=== PATIENT | male | born 1955 ===

== ENCOUNTER 2018-04-08 06:52 | Day surgery (SDC) | payer MEDICARE ==
[2018-04-05 12:40] VITALS: BMI 37.3
[2018-04-08] MEDS ORDERED: Lidocaine 2% Inj (20ml) ONE (07:53)
[2018-04-08] MEDS ORDERED: Iodixanol 320 MG/ML 200 ML BOTTLE IV ONE (07:54)
[2018-04-08 08:21] LABS: BASO # 0.03 K/mm3 (0.0-2.0); BASO % 0.5 % (0.0-3.0); EOS # 0.6 (0.0-0.7); EOS % 10.7 % (1.5-5.0); GRAN # 2.49 (1.4-6.5); GRAN % 41.8 % (50.0-68.0); HEMOGLOBIN 12.4 g/dL (14.0-18.0); LYMPH # 2.4 (1.2-3.4); LYMPH % 39.4 % (22.0-35.0); MEAN CELL VOLUME 88.6 fl (80.0-105.0); MEAN CORPUSCULAR HGB CONC 33.8 g/dl (31.0-37.0); MEAN PLATELET VOLUME 8.8 fl (7.0-11.0); MONO # 0.5 (0.1-0.6); MONO % 7.6 % (1.0-6.0); RBC 4.14 10^6/uL (3.5-6.1); RED CELL DISTRIBUTION WIDTH 13.3 % (11.5-14.5)
[2018-04-08 08:25] LABS: PROTHROMBIN TIME 11.2 SECONDS (9.4-12.5)
[2018-04-08 08:26] LABS: INR 0.97 (0.93-1.08); PARTIAL THROMBOPLASTIN TIME 30.8 Seconds (25.1-36.5)
[2018-04-08] MEDS ORDERED: Midazolam 2 MG/2 ML VIAL ONE ×4 (08:27→09:58)
[2018-04-08 08:32] LABS: BLOOD UREA NITROGEN 17 mg/dL (7-21); CALCIUM 8.9 mg/dL (8.4-10.5); GFR AFRICAN-AMERICAN > 60; GFR NON-AFRICAN AMERICAN > 60; HDL CHOLESTEROL 39 mg/dL (29-60)
[2018-04-08 08:43] LABS: LDL CHOLESTEROL 85 mg/dL (0-129)
[2018-04-08] MEDS ORDERED: Eptifibatide 20 mg/10mL Inj IVP ONE (10:02)
[2018-04-08] MEDS ORDERED: Sodium Chloride 0.9% 1,000 ML IV SCH (10:15)
--- NOTE | 2018-04-08 11:27 | CARD ---
APPROVED REPORT EKG Measurement Heart [id number] <Conclusion> Normal sinus rhythm Normal ECG
--- NOTE | 2018-04-08 11:30 | CARD ---
APPROVED REPORT EKG Measurement Heart [id number] <Conclusion> Sinus rhythm with 1st degree AV block Borderline ECG
--- NOTE | 2018-04-08 13:27 | CARDCATH ---
PROCEDURE DATE: 04/08/2018 CARDIAC CATH AND PTCA HISTORY: The patient is a 62-year-old male, who suffers from hypertension, diabetes mellitus and hypercholesterolemia as well as obesity, who presents with an abnormal stress test. A cardiac catheterization was recommended. PROCEDURE: Left heart catheterization with coronary arteriography, left ventriculogram, followed by PTCA and stent of the circumflex artery. The right femoral artery was cannulated with a 6-Afghan sheath. There were no complications. I performed moderate sedation, which included the presence of an independent trained observer that assisted in monitoring the patient's level of consciousness and physiologic status. After administration of Versed and fentanyl, my intra service time was 45 minutes. The findings on catheterization revealed a right dominant circulation. The RCA revealed diffuse atherosclerosis throughout its coronary artery with calcification in the proximal portion. The posterolateral branch and PDA revealed 50-60% lesions. The left main artery was calcified without critical lesions. The circumflex artery in the AV groove branch was occluded. There is an obtuse marginal branch, which revealed intimal irregularities without critical lesions. The LAD was diffusely diseased throughout its course. At the takeoff of the septal supervisor stone, there is an 80% stenosis noted. In the midportion of the LAD, there was a long 70% stenosis noted. The first diagonal vessel revealed a 90% stenosis at its ostium. The patient was started on intravenous Angiomax and given two boluses of IV Integrilin. Using the guiding catheter as well as a guideliner, an ATW wire followed by a run-through wire followed by a wire was used to cross the total occlusion. A 2 followed by 2.5 balloon was utilized to predilate the total occlusion. A 2.5 x 20 mm drug-eluting stent was placed and deployed in the total occlusion at 14 atmospheres of pressure. Repeat coronary arteriography revealed an excellent result with no residual stenosis and MERLYN III flow. The patient tolerated the procedure well. The Angio-Seal was used to close the femoral artery site. IMPRESSION: 1. In summary, the procedure was successful for percutaneous transluminal coronary angioplasty and stent of a chronically occluded mid circumflex artery and stented with a drug-eluting stent. 2. Cardiac catheterization reveals triple vessel coronary artery disease with an occluded mid circumflex artery, multiple lesions in the left anterior descending and diagonal vessels and noncritical lesions in the right coronary artery. 3. Left ventricular function is normal. PLAN: 1. Given these findings, the patient will need to remain on aspirin indefinitely and Plavix for at least a year. We will bring him back in 1 week for PTCA and stent of the two lesions in the LAD, septal supervisor stone as well as the diagonal vessel. 2. The patient will need to undergo a strict cardiac risk reduction program as well as to lose weight. The intervention was discussed with the patient with risks, benefits of CABG versus PTCA. The patient and opted for PTCA first. Braxton Brewster MD
[2018-04-08] MEDS ORDERED: Oxycodone/Acetaminophen 5/325 mg Tab PO PRN (21:03)
[2018-04-08 23:54] VITALS: O2SAT 97
--- NOTE | 2018-04-09 04:24 | CP.PCM.PN ---
Subjective - Date & Time of Evaluation Date of Evaluation: 04/09/18 Time of Evaluation: 04:21 - Subjective Subjective: S: Seen @ bedside C/o pain in urethra when pees, not burning pain, has to stress to pass urine peeing a lot. No other complaints. Medical record was reviewed. O: VSS. Right groin dressing clean and dry. ABD:Soft , non tender, no mass. Genital exam-Normal. A:Pain in urethra. P:Has an order for percocet for pain. UA.Urince C&S. Objective - Vital Signs/Intake and Output Vital Signs (last 24 hours): Temp Pulse Resp BP Pulse Ox 98.4 F 78 20 116/68 97 04/08/18 23:53 04/09/18 02:00 04/08/18 23:53 04/08/18 23:53 04/08/18 23:53 - Medications Medications: Current Medications Amlodipine Besylate (Norvasc) 5 mg PO DAILY [facility] Aspirin (Ecotrin) 81 mg PO DAILY [facility] Atorvastatin Calcium (Lipitor) 40 mg PO DIN [facility] Last Admin: 04/08/18 17:16 Dose: 40 mg Clopidogrel Bisulfate (Plavix) 75 mg PO DAILY [facility] Famotidine (Pepcid) 40 mg PO HS [facility] Last Admin: 04/08/18 21:46 Dose: 40 mg Oxycodone/Acetaminophen (Percocet 5/325 Mg Tab) 1 tab PO Q6H PRN PRN Reason: Pain, moderate (4-7) Stop: 04/11/18 21:04 Last Admin: 04/09/18 04:11 Dose: 1 tab Pantoprazole Sodium (Protonix Ec Tab) 40 mg PO 0600 [facility] Pregabalin (Lyrica) 50 mg PO TID [facility] Last Admin: 04/08/18 21:46 Dose: 50 mg Tizanidine HCl (Zanaflex) 4 mg PO DAILY [facility] Last Admin: 04/08/18 21:46 Dose: 4 mg - Labs Labs: 04/08/18 07:55 04/08/18 07:55 PT 11.2 SECONDS (9.4-12.5) 04/08/18 07:55 INR 0.97 (0.93-1.08) 04/08/18 07:55 APTT 30.8 Seconds (25.1-36.5) 04/08/18 07:55
[2018-04-09 04:38] LABS: URINE BILIRUBIN NEGATIVE (NEGATIVE); URINE BLOOD TRACE-LYSED (NEGATIVE); URINE GLUCOSE (UA) NEGATIVE (NEGATIVE); URINE LEUKOCYTE ESTERASE NEGATIVE Leu/uL (NEGATIVE); URINE PROTEIN NEGATIVE mg/dL (<30 mg/dL); URINE UROBILINOGEN 0.2 E.U./dL (<1 E.U./dL)
[2018-04-09 04:39] LABS: URINE APPEARANCE CLEAR (CLEAR); URINE COLOR YELLOW (YELLOW)
[2018-04-09 05:21] LABS: URINE EPITHELIAL CELLS 0 - 2 /hpf (0-5); URINE RBC 0 - 2 /hpf (0-2); URINE WBC 0 - 2 /hpf (0-6)
[2018-04-09] MEDS ORDERED: Pantoprazole 40 mg EC Tab PO SCH (06:00)
[2018-04-09 06:17] LABS: BASO # 0.02 K/mm3 (0.0-2.0); BASO % 0.3 % (0.0-3.0); EOS # 0.5 (0.0-0.7); EOS % 6.1 % (1.5-5.0); GRAN # 4.65 (1.4-6.5); GRAN % 62.9 % (50.0-68.0); HEMOGLOBIN 12.1 g/dL (14.0-18.0); LYMPH # 1.6 (1.2-3.4); LYMPH % 21.2 % (22.0-35.0); MEAN CELL VOLUME 88.5 fl (80.0-105.0); MEAN CORPUSCULAR HEMOGLOBIN 29.5 pg (25.0-35.0); MEAN CORPUSCULAR HGB CONC 33.3 g/dl (31.0-37.0); MEAN PLATELET VOLUME 8.7 fl (7.0-11.0); MONO # 0.7 (0.1-0.6); MONO % 9.5 % (1.0-6.0); RBC 4.1 10^6/uL (3.5-6.1); RED CELL DISTRIBUTION WIDTH 13.5 % (11.5-14.5); WHITE BLOOD COUNT 7.4 10^3/ul (4.5-11.0)
[2018-04-09 06:22] VITALS: RESP 18; TEMP 97.5
[2018-04-09 06:44] LABS: BLOOD UREA NITROGEN 13 mg/dL (7-21); CALCIUM 8.7 mg/dL (8.4-10.5); GFR AFRICAN-AMERICAN > 60; GFR NON-AFRICAN AMERICAN > 60
[2018-04-09 09:21] VITALS: BP 112/66
--- NOTE | 2018-04-09 09:58 | PN ---
DATE: 04/09/2018 CARDIOLOGY FOLLOWUP SUBJECTIVE: The patient is chest pain free. He is complaining of dysuria. PHYSICAL EXAMINATION: VITAL SIGNS: This morning, blood pressure is 107/65, heart rate is in the 70s. NECK: Negative JVD. LUNGS: Without rales. HEART: Revels S1, S2. EXTREMITIES: Without edema. Right groin site is stable. LABORATORY DATA: Hemoglobin is 12.1, white count is normal. Glucose is 174. The urinalysis is negative. IMPRESSION: 1. Dysuria. 2. Stable post percutaneous transluminal coronary angioplasty and stent. 3. Coronary artery disease. 4. Diabetes mellitus. 5. Obesity. 6. Hypercholesterolemia. PLAN: Given these findings, the patient is stable post PTCA and stent. He needs to go home on aspirin, Plavix, statin therapy. The patient will be coming back next week for PTCA and stent of his other coronary stenoses. Followup and instructions were given to the patient in detail. Braxton Brewster MD
[2018-04-09 11:55] VITALS: PULSE 81
--- NOTE | 2018-04-10 11:50 | HP ---
DATE OF EXAM: 04/08/2018 REASON FOR ADMISSION: Status post cardiac tests, multiple vessel disease, status post stenting. HISTORY OF PRESENT ILLNESS: This is a 62-year-old male with history of positive nuclear stress test, underwent cardiac catheterization on the day of admission, which showed triple vessel disease, mid circumflex lesions, multiple lesions in the LAD, and noncritical lesion in the right coronary artery. Patient has normal LV function. Discussion with Dr. Brewster, he did the mid circumflex stenting with success. Patient will be admitted to Observation. Has no complication. No chest pain. No shortness of breath and seems stable cardiacwise. PAST MEDICAL HISTORY: As I mentioned above, coronary artery disease, positive stress test, also COPD, peptic ulcer disease, hypertension, chronic severe osteoarthritis of both knees and back, spinal stenosis. ALLERGIES: NO KNOWN ALLERGIES. SOCIAL HISTORY: No smoking, no drinking. FAMILY HISTORY: Noncontributory. REVIEW OF SYSTEMS: He does complain of back pain and knee pain. He does need knee surgery, probably knee replacement and he also needs going for bariatric surgery he got upper endoscopy shows an ulcer, no active bleeding. Patient, otherwise, is stable. PHYSICAL EXAMINATION: VITAL SIGNS: On 04/08/2018, temperature 98.4, heart rate 78, blood pressure 116/68, respirations 20, saturation 97% on room air. HEAD AND NECK: Normal. No JVD. No thyromegaly. CHEST: Clear bilaterally. CARDIAC: First sound and second sound normal. ABDOMEN: Soft, nontender, obese. EXTREMITIES: No edema. NEUROLOGIC: Normal. LABORATORY DATA: White count 6, hemoglobin 12.4, hematocrit 36.7, platelets 294. Chemistry: Sodium 141, potassium 4.2, chloride 99, bicarb 31, BUN 17, creatinine 0.8. blood sugar 166, calcium 8.9, triglycerides 220, cholesterol 176, LDL 85, HDL 39. Also, cardiac catheterization, as I mentioned above, multiple 3-vessel disease, LAD multiple lesions, mid circumflex significant lesion and noncritical lesion in RCA. Patient has good LV function. IMPRESSION AND PLAN: 1. Status post cardiac catheterization, stenting of mid circumflex. Patient will be admitted, Observation overnight. Continue Plavix, aspirin and continue current therapy. 2. Patient has history of hypertension, chronic obstructive pulmonary disease; for his peptic ulcer, resume Protonix, nebulizer treatment and resume all his medications and cholesterol medications. Continue current therapy. We will see him in the morning. Sachin Oviedo MD
--- NOTE | 2018-04-10 23:57 | DS ---
HISTORY OF PRESENT ILLNESS: Patient is stable. No chest pain. Comfortable. Seen by recruitment manager. Katherine for discharge. His blood sugar is 150. PHYSICAL EXAMINATION: VITAL SIGNS: Temperature 97.5, heart rate 77, blood pressure 112/66, respirations 18, sat 97% on room air. HEAD AND NECK: Normal. No JVD. No thyromegaly. CHEST: Clear bilaterally. CARDIAC: First sound and second sound normal. ABDOMEN: Soft and nontender. EXTREMITIES: No edema. NEUROLOGIC: Normal. Right-sided groin area seems stable. No active bleeding and no signs of infection. LABORATORY DATA: Sodium 140, potassium 4, chloride 100, bicarb 30, BUN 13, creatinine 0.8, blood sugar 174, calcium 8.7. CBC shows white count 7.4, hemoglobin 12.1, hematocrit 36.3, platelets 284. Urinalysis was normal. PT/PTT is normal. DISCHARGE DIAGNOSES: 1. Coronary artery disease, triple vessel disease, status post stenting of mid circumflex. 2. Triple vessel disease. Patient will come within a week or two for another stenting for other lesions. 3. Chronic back pain, chronic osteoarthritis bilateral knee. Continue tramadol. Follow up as outpatient. 4. Diabetes. Hold off on Glucophage for another day and resume it after that. 5. Hypertension. Continue Norvasc. 6. Radiculopathy, spinal stenosis, multiple disk disease. Continue Lyrica. 7. Peptic ulcer disease. Continue Pepcid and Protonix. 8. Coronary artery disease with acute stent. Continue Plavix and aspirin. 9. Hypercholesterolemia. Continue Lipitor 40. Follow up clinically in a week. Sachin Oviedo MD
== END 2018-04-09 12:25 | disposition home or self-care (01) ==
LOC: CATH 06:52 → 2RNO 10:29 → CATH 04-09 12:25
PROVIDERS: ATTEND Internal Medicine Cardiovascular Disease
DX: I25.10 Atherosclerotic heart disease of native coronary artery without angina pectoris (principal); E78.00 Pure hypercholesterolemia, unspecified; E66.9 Obesity, unspecified; E11.9 Type 2 diabetes mellitus without complications; I10 Essential (primary) hypertension
CPT/HCPCS: 36415 ×2; 80048 ×2; 80061; 81001; 82948 ×2; 85025 ×2; 85610; 85730; 86850; 86900; 87086; 93005; 93458; 94660; 99152; 99153; C1725 ×2; C1760; C1769 ×5; C1874 ×2; C1887 ×2; C2629; C9600; J0583; J1327; J1644; J2250; J3010; J7030 ×2; Q9966

== ENCOUNTER 2018-04-28 23:13 | Emergency (ER) | payer MEDICARE ==
[2018-04-28 23:40] VITALS: BP 116/74; PULSE 72; RESP 18; TEMP 98.6; O2SAT 99; BMI 35.6
[2018-04-29 01:49] LABS: BASO # 0.03 K/mm3 (0.0-2.0); BASO % 0.5 % (0.0-3.0); EOS # 0.3 (0.0-0.7); EOS % 4.2 % (1.5-5.0); GRAN # 2.77 (1.4-6.5); GRAN % 42.8 % (50.0-68.0); HEMOGLOBIN 12.1 g/dL (14.0-18.0); LYMPH # 2.9 (1.2-3.4); MEAN CELL VOLUME 88.5 fl (80.0-105.0); MEAN CORPUSCULAR HEMOGLOBIN 30.2 pg (25.0-35.0); MEAN CORPUSCULAR HGB CONC 34.1 g/dl (31.0-37.0); MEAN PLATELET VOLUME 8.6 fl (7.0-11.0); MONO # 0.6 (0.1-0.6); MONO % 8.5 % (1.0-6.0); RBC 4.01 10^6/uL (3.5-6.1); RED CELL DISTRIBUTION WIDTH 13.3 % (11.5-14.5); WHITE BLOOD COUNT 6.5 10^3/ul (4.5-11.0)
--- NOTE | 2018-04-29 01:51 | ED PDOC ---
Arrival/HPI <Zeyad Fernandez - Last Filed: 04/29/18 02:16> - General Historian: Patient - History of Present Illness Time/Duration: < week Symptom Onset: Gradual Symptom Course: Unchanged Activities at Onset: Light Context: Home <Liat Montero - Last Filed: 04/30/18 16:18> - General Chief Complaint: Abnormal Skin Integrity Time Seen by Provider: 04/29/18 00:42 - History of Present Illness Narrative History of Present Illness (Text): 04/29/18 00:40 62 year old male presents to the Emergency department complaining of a bleeding lesion to the left side of scrotum. Patient states he felt something to the left side of scrotum 2 days prior. Patient states today he rubbed the area and it began to bleed, and notes it was bleeding for 2 hours. Patient states he was unable to stop the bleeding and came in for further evaluation. Patient notes he regularly takes blood thinners. Patient denies any pain to the area, testicular swelling, urinary symptoms, or any other complaints. (Liat Montero) Past Medical History - Provider Review Nursing Documentation Reviewed: Yes - Infectious Disease Hx of Infectious Diseases: None - Cardiac Hx Pacemaker: No - Neurological Hx Paralysis: No - Hematological/Oncological Hx Blood Transfusions: No - Musculoskeletal/Rheumatological Hx Musculoskeletal Disorders: Yes (SCIATICA) - Psychiatric Hx Emotional Abuse: No Hx Physical Abuse: No Hx Substance Use: No - Anesthesia Hx Anesthesia Reactions: No Hx Malignant Hyperthermia: No - Suicidal Assessment Feels Threatened In Home Enviroment: No <Liat Montero - Last Filed: 04/30/18 16:18> Family/Social History - Physician Review Nursing Documentation Reviewed: Yes Family/Social History: Unknown Family HX Smoking Status: Never Smoked Hx Alcohol Use: No Hx Substance Use: No <Liat Montero - Last Filed: 04/30/18 16:18> Allergies/Home Meds <Zeyad Fernandez - Last Filed: 04/29/18 02:16> <Liat Montero - Last Filed: 04/30/18 16:18> Allergies/Adverse Reactions: Allergies clopidogrel [From Plavix] Allergy (Intermediate, Verified 04/16/18 00:23) RASH Home Medications: Home Meds Medication Instructions Recorded Confirmed Amitriptyline [Elavil] 10 mg PO HS 04/05/18 04/15/18 Benazepril HCl [Lotensin] 10 mg PO DAILY 04/05/18 04/16/18 Gabapentin [Neurontin] 300 mg PO HS 04/05/18 04/15/18 Loratadine [Claritin] 10 mg PO DAILY 04/05/18 04/15/18 Omeprazole 40 mg PO DAILY 04/05/18 04/15/18 Pregabalin [Lyrica] 50 mg PO TID 04/05/18 04/15/18 Ranitidine HCl [Zantac] 300 mg PO DAILY 04/05/18 04/15/18 metFORMIN [glucOPHAGE] 500 mg PO BID 04/05/18 04/15/18 tiZANidine [Zanaflex] 4 mg PO DAILY 04/05/18 04/15/18 traMADol [Ultram] 50 mg PO DAILY PRN 04/05/18 04/15/18 Simvastatin [Zocor] 40 mg PO DAILY 04/15/18 04/15/18 Review of Systems - Physician Review All systems were reviewed & negative as marked: Yes - Review of Systems Constitutional: Normal. absent: Fatigue, Fevers Respiratory: Normal. absent: SOB, Cough Cardiovascular: Normal. absent: Chest Pain Gastrointestinal: Normal. absent: Abdominal Pain, Diarrhea, Nausea, Vomiting Genitourinary Male: Other (+bleediong lesion to left scrotum). absent: Dysuria , Frequency, Hematuria, Urinary Output Changes Musculoskeletal: absent: Arthralgias, Back Pain Skin: Normal. absent: Rash Neurological: Normal. absent: Headache, Dizziness <Azoia,Liat T - Last Filed: 04/30/18 16:18> Physical Exam Vital Signs Reviewed: Yes Temperature: Afebrile Blood Pressure: Normal Pulse: Regular Respiratory Rate: Normal Appearance: Positive for: Well-Appearing, Non-Toxic, Comfortable Pain Distress: None Mental Status: Positive for: Alert and Oriented X 3 - Systems Exam Head: Present: Atraumatic, Normocephalic Conjunctiva: Present: Normal Mouth: Present: Moist Mucous Membranes Neck: Present: Normal Range of Motion Respiratory/Chest: Present: Clear to Auscultation, Good Air Exchange. No: Respiratory Distress, Accessory Muscle Use Cardiovascular: Present: Regular Rate and Rhythm, Normal S1, S2. No: Murmurs Abdomen: No: Tenderness, Distention, Peritoneal Signs Genitourinary Male: Present: Lesions (Small pedunculated flesh-colored skin lesion to left scrotum, small amount of bleeding from base). No: Normal External Genitalia, Penile Discharge, Testicle Tenderness, Masses, Erythema, Testicle Swelling Back: Present: Normal Inspection Upper Extremity: Present: Normal Inspection. No: Cyanosis, Edema Lower Extremity: Present: Normal Inspection. No: Edema Neurological: Present: GCS=15, Speech Normal Skin: Present: Warm, Dry, Normal Color Psychiatric: Present: Alert, Oriented x 3 <Liat Montero - Last Filed: 04/30/18 16:18> Vital Signs Temp Pulse Resp BP Pulse Ox 04/28/18 23:33 98.6 F 72 18 116/74 99 Medical Decision Making <Zeyad Fernandez - Last Filed: 04/29/18 02:16> - Lab Interpretations I have reviewed the lab results: Yes <Liat Montero - Last Filed: 04/30/18 16:18> ED Course and Treatment: 04/29/18 00:40 Impression: 62 year old male complaining of left-sided scrotal bleeding lesion. Plan: -- CBC, Coags -- Reassess and disposition Progress Notes: DARLEEN Germain present at bedside. Stood at bedside holding direct pressure to the area of the bleeding lesion for 10 minutes. Bleeding stopped/controlled. Gelfoam applied. Labs reviewed, within normal limits. Pt advised to follow-up with dermatology, urology, surgery this week or return if symptoms worsen or new concerning symptoms arise. impression; bleeding skin lesion follow up with the primary care physician within the next 2 days follow up with the urologist for further evaluation of skin lesion. Return immediately if symptoms worsen,persist or if new symptoms develop. (Liat Montero) - Lab Interpretations Lab Results: 04/29/18 01:09 04/29/18 01:09 Lab Results 04/29/18 01:09: WBC 6.5, RBC 4.01, Hgb 12.1 L, Hct 35.5 L, MCV 88.5, MCH 30.2, MCHC 34.1, RDW 13.3, Plt Count 341, MPV 8.6, Gran % 42.8 L, Lymph % (Auto) 44.0 H, [place] % (Auto) 8.5 H, Eos % (Auto) 4.2, Baso % (Auto) 0.5, Gran # 2.77, Lymph # (Auto) 2.9, [place] # (Auto) 0.6, Eos # (Auto) 0.3, Baso # (Auto) 0.03 04/29/18 01:09: Sodium 143, Potassium 4.4, Chloride 104, Carbon Dioxide 28, Anion Gap 15, BUN 18, Creatinine 0.8, Est GFR ( Amer) > 60, Est GFR (Non- Af Amer) > 60, Random Glucose 164 H, Calcium 9.1, Total Bilirubin 0.2, AST 42, ALT 48, Alkaline Phosphatase 99, Total Protein 6.7, Albumin 3.9, Globulin 2.8, Albumin/Globulin Ratio 1.4 04/29/18 01:09: PT 11.3, INR 0.99, APTT 34.0 - Medication Orders Current Medication Orders: Discontinued Medications Gelatin (Gelfoam Size 12-7) 1 spg MM STAT STA Stop: 04/29/18 02:08 - PA / HEAD ATHLETIC TRAINER/STRENGTH COACH / Resident Statement MD/DO has reviewed & agrees with the documentation as recorded. MD/DO has examined the patient and agrees with the treatment plan. <Zeyad Fernandez - Last Filed: 04/29/18 02:16> - Scribe Statement The provider has reviewed the documentation as recorded by the Scribe <Liat Montero - Last Filed: 04/30/18 16:18> - Scribe Statement Hiral Motley Provider Scribe Attestation: All medical record entries made by the Scribe were at my direction and personally dictated by me. I have reviewed the chart and agree that the record accurately reflects my personal performance of the history, physical exam, medical decision making, and the department course for this patient. I have also personally directed, reviewed, and agree with the discharge instructions and disposition. (Liat Montero) Disposition/Present on Arrival <Zeyad Fernandez - Last Filed: 04/29/18 02:16> - Present on Arrival Any Indicators Present on Arrival: No History of DVT/PE: No History of Uncontrolled Diabetes: No Urinary Catheter: No History of Decub. Ulcer: No History Surgical Site Infection Following: None - Disposition Have Diagnosis and Disposition been Completed?: Yes Disposition Time: 01:48 Patient Plan: Discharge <Liat Montero - Last Filed: 04/30/18 16:18> - Disposition Diagnosis: Hemorrhage of skin lesion Disposition: HOME/ ROUTINE Condition: GOOD Additional Instructions: follow up with the primary care physician within the next 2 days follow up with the urologist for further evaluation of skin lesion. Return immediately if symptoms worsen,persist or if new symptoms develop. Referrals: Mery Granados MD [Staff Provider] - Follow up with primary Cornelio Villanueva MD [Staff Provider] - Follow up with primary Luis Eduardo Huber MD [Medical Doctor] - Follow up with primary Elias Cheng MD [Staff Provider] - Follow up with primary Sachin Oviedo MD [Family Provider] - Follow up with primary Forms: [facility] ([place])
[2018-04-29 01:53] LABS: ALB/GLOB RATIO 1.4 (1.1-1.8); ALBUMIN 3.9 g/dL (3.0-4.8); ALT/SGPT 48 U/L (7-56); AST/SGOT 42 U/L (17-59); BLOOD UREA NITROGEN 18 mg/dL (7-21); CALCIUM 9.1 mg/dL (8.4-10.5); GFR AFRICAN-AMERICAN > 60; GFR NON-AFRICAN AMERICAN > 60
[2018-04-29 01:55] LABS: INR 0.99 (0.93-1.08); PROTHROMBIN TIME 11.3 SECONDS (9.4-12.5)
[2018-04-29] MEDS ORDERED: Absorbable Gelatin Sponge Size 12-7 MM STA (02:07)
== END 2018-04-29 02:53 | disposition home or self-care (01) ==
LOC: ED 23:13
DX: L98.8 Other specified disorders of the skin and subcutaneous tissue (principal)